=== PATIENT | female | born 1935 | race Caucasian/White ===

== ENCOUNTER 2016-06-19 16:55 | Inpatient (IN) | payer OTHER ==
[~2016-06-19] VITALS: Ht 162.6 cm; Wt 59.0 kg
[~2016-06-19 16:55] MED LIST: ACIDOPHILUS PO; ASPIRIN81 M1 PO; Augmentin PO; Bactrim,Septra DS 80 PO; COMPAZINE10 MG PO; LIPITOR20 MG PO; LORTAB 5-325 M1 EACH PO; MEDROL DOSEPAK4 MG PO; MOTRIN800 MG PO; OSCAL, OYSTER500 MG PO; Omega III EPA + DHA PO; PRILOSEC10 MG PO; Percocet 5/325,Endoc PO; ROPINIROLE HC0.25 MG PO; SKELAXIN800 MG PO; SODIUM CHLORIDE1 G1 PO; THERAGRAN1 TABLET PO; TRAZODONE HCL50 MG PO; TYLENOL REGULA325 MG PO; ZANTAC150 MG PO
[2016-06-19 19:49] LABS: EOSINOPHIL (%) 1.8 % (0-5); EOSINOPHIL COUNT 0.2 K/uL (0-0.3); HEMATOCRIT 31.3 % (36.0-46.0); IMMATURE GRANULOCYTE (%) 0.2 % (0.0-0.7); IMMATURE GRANULOCYTE COUNT 0.2 K/uL; MCH 31.3 PG (29.0-34.0); MCHC 35.5 G/DL (30.0-36.0); MCV 88.2 FL (83-99); MEAN PLAT.VOLUME 9.2 uM^3 (9.5-12.4); MONOCYTE (%) 0.5 % (3-12); NEUTROPHIL (%) 85.6 % (45-76); NEUTROPHIL COUNT 7.4 K/uL (1.8-6.4); PLATELET COUNT 188 K/uL (156-360); RBC DIS.WIDTH-CV 15.3 % (11.8-14.6); RBC DIS.WIDTH-SD 47.4 % (39-53); RED BLOOD COUNT 3.55 M/uL (3.80-5.20); WHITE BLOOD COUNT 8.7 K/uL (4.1-10.2)
[2016-06-19 20:07] LABS: CHLORIDE 89 mEq/L (99-109); POTASSIUM 4.9 mEq/L (3.7-5.4); SODIUM 124 mEq/L (136-147)
[2016-06-19 20:09] LABS: GLUCOSE 90 mg/dL (70-99)
[2016-06-19 20:11] LABS: ANION GAP 9 MEQ/L (2-14); TOTAL BILIRUBIN 0.7 mg/dL (0.0-1.0)
[2016-06-19 20:13] LABS: ALKALINE PHOSPHATASE 97 IU/L (3-129); GFR ESTIMATE (CALCULATED) > 59 mL/min/
[2016-06-19 20:14] LABS: UREA NITROGEN (BUN) 18 mg/dL (9-23)
[2016-06-19] MEDS ORDERED: DAILY VITE1 EAC1 PO (21:55)
[2016-06-19] MEDS ORDERED: OS-CAL 500+D T1 EAC1 PO (21:55)
[2016-06-19] MEDS ORDERED: VITAMIN B-12500 MC5 SL (21:56)
[2016-06-19] MEDS ORDERED: LO-DOSE ASPIRIN81 M1 PO (21:56)
[2016-06-19] MEDS ORDERED: ZANTAC150 MG PO (21:57)
[2016-06-19] MEDS ORDERED: VITAMIN B-250 MG PO (21:57)
[2016-06-19] MEDS ORDERED: LIPITOR20 MG PO (21:57)
[2016-06-19] MEDS ORDERED: CRANBERRY500 M2 PO (21:58)
[2016-06-19] MEDS ORDERED: NEURONTIN300 MG PO (21:59)
[2016-06-19] MEDS ORDERED: PROBIOTIC 5 BI1 EACH PO (21:59)
[2016-06-19] MEDS ORDERED: GABAPENTIN300 MG PO ×2 (22:00)
[2016-06-19] MEDS ORDERED: PROCHLORPERAZIN10 MG PO (22:01)
[2016-06-19] MEDS ORDERED: ZOFRAN8 MG PO (22:02)
[2016-06-19] MEDS ORDERED: SALINE NOSE SPR45 M1 BOTH NARES (22:03)
[2016-06-19 22:23] LABS: ADD MIUA? YES; BILIRUBIN NEGATIVE; BLOOD TRACE; COLOR YELLOW ((YELLOW)); GLUCOSE (STRIP) NEGATIVE; KETONES NEGATIVE; LEUKOCYTES MODERATE; NITRITE POSITIVE; PH, URINE 7.5 (5-8); PROTEIN (STRIP) 100; SPECIFIC GRAVITY 1.015 (1.000-1.030); UROBILINOGEN 0.2 MG/DL (0.2-1.0)
[2016-06-19 22:34] LABS: BACTERIA 3+; CASTS NONE SEEN /LPF; CRYSTALS NONE SEEN; EPITHELIAL CELLS RARE; MUCUS NONE SEEN; PATHOLOGICAL CAST NONE SEEN; SMALL ROUND CELL NONE SEEN; UCUL ADDED? YES; WHITE BLOOD CELLS TNTC /HPF (0-5); YEAST-LIKE CELL NONE SEEN
[2016-06-20 01:37] VITALS: BP 160/82
[2016-06-20 06:29] LABS: HEMATOCRIT 31.9 % (36.0-46.0); MCHC 34.8 G/DL (30.0-36.0); MCV 89.1 FL (83-99); MEAN PLAT.VOLUME 9.1 uM^3 (9.5-12.4); PLATELET COUNT 188 K/uL (156-360); RBC DIS.WIDTH-CV 15.6 % (11.8-14.6); RBC DIS.WIDTH-SD 49.9 % (39-53); RED BLOOD COUNT 3.58 M/uL (3.80-5.20); WHITE BLOOD COUNT 8.8 K/uL (4.1-10.2)
[2016-06-20 06:58] LABS: ALKALINE PHOSPHATASE 98 IU/L (3-129); ANION GAP 10 MEQ/L (2-14); CHLORIDE 94 MEQ/L (99-109); GFR ESTIMATE (CALCULATED) > 59 mL/min/; POTASSIUM 4.4 MEQ/L (3.7-5.4); SAMPLE HEMOLYSIS CHECK 0; SAMPLE ICTERIC CHECK 0; SAMPLE LIPEMIA CHECK 0; SODIUM 124 MEQ/L (136-147); TOTAL BILIRUBIN 0.4 MG/DL (0.0-1.0); UREA NITROGEN (BUN) 18 mg/dL (9-23)
[2016-06-20 07:00] LABS: GLUCOSE 137 mg/dL (70-99)
[2016-06-20 08:00] VITALS: BP 161/94
[2016-06-20 12:00] VITALS: BP 178/81
[2016-06-20 15:31] VITALS: BP 148/72
[2016-06-20 20:29] VITALS: BP 158/84
[2016-06-21 00:46] VITALS: BP 150/90
[2016-06-21 04:38] VITALS: BP 148/66
[2016-06-21 08:00] VITALS: BP 148/75
[2016-06-21 09:23] LABS: ANION GAP 8 MEQ/L (2-14); CHLORIDE 98 MEQ/L (99-109); POTASSIUM 4.5 MEQ/L (3.7-5.4); SAMPLE HEMOLYSIS CHECK 0; SAMPLE ICTERIC CHECK 0; SAMPLE LIPEMIA CHECK 0; SODIUM 130 MEQ/L (136-147)
[2016-06-21 09:29] LABS: GFR ESTIMATE (CALCULATED) 57 mL/min/; UREA NITROGEN (BUN) 21 mg/dL (9-23)
[2016-06-21 09:30] LABS: GLUCOSE 91 mg/dL (70-99)
[2016-06-21 11:54] VITALS: BP 175/76
[2016-06-21 15:19] LABS: ANION GAP 13 MEQ/L (2-14); CHLORIDE 95 MEQ/L (99-109); GFR ESTIMATE (CALCULATED) 51 mL/min/; GLUCOSE 96 mg/dL (70-99); POTASSIUM 4.2 MEQ/L (3.7-5.4); SAMPLE HEMOLYSIS CHECK 0; SAMPLE ICTERIC CHECK 0; SAMPLE LIPEMIA CHECK 0; SODIUM 133 MEQ/L (136-147); UREA NITROGEN (BUN) 22 mg/dL (9-23)
[2016-06-21 15:44] VITALS: BP 139/88
[2016-06-21 19:27] VITALS: BP 183/84
[2016-06-21 21:29] LABS: ANION GAP 7 MEQ/L (2-14); CHLORIDE 99 MEQ/L (99-109); POTASSIUM 4.6 MEQ/L (3.7-5.4); SAMPLE HEMOLYSIS CHECK 0; SAMPLE ICTERIC CHECK 0; SAMPLE LIPEMIA CHECK 0; SODIUM 130 MEQ/L (136-147)
[2016-06-21 21:35] LABS: GFR ESTIMATE (CALCULATED) 51 mL/min/; GLUCOSE 101 mg/dL (70-99); UREA NITROGEN (BUN) 23 mg/dL (9-23)
[2016-06-22 00:32] VITALS: BP 172/77
[2016-06-22 02:21] LABS: POTASSIUM 4.5 mEq/L (3.7-5.4); SODIUM 132 mEq/L (136-147)
[2016-06-22 02:23] LABS: GLUCOSE 85 mg/dL (70-99)
[2016-06-22 02:24] LABS: ANION GAP 8 MEQ/L (2-14)
[2016-06-22 02:27] LABS: GFR ESTIMATE (CALCULATED) > 59 mL/min/; UREA NITROGEN (BUN) 23 mg/dL (9-23)
[2016-06-22 02:51] LABS: CHLORIDE 102 mEq/L (99-109)
[2016-06-22 03:49] VITALS: BP 169/78
[2016-06-22 08:00] VITALS: BP 186/80
[2016-06-22 09:30] LABS: ANION GAP 6 MEQ/L (2-14); CHLORIDE 98 MEQ/L (99-109); POTASSIUM 4.2 MEQ/L (3.7-5.4); SAMPLE HEMOLYSIS CHECK 0; SAMPLE ICTERIC CHECK 0; SAMPLE LIPEMIA CHECK 0; SODIUM 130 MEQ/L (136-147)
[2016-06-22 09:35] LABS: GFR ESTIMATE (CALCULATED) > 59 mL/min/; GLUCOSE 80 mg/dL (70-99); UREA NITROGEN (BUN) 20 mg/dL (9-23)
[2016-06-22] MEDS ORDERED: KEFLEX250 MG PO (11:24)
[2016-06-22] MEDS ORDERED: NORVASC10 MG PO (11:24)
== END 2016-06-22 13:25 | disposition home or self-care (01) | DRG 71 ==
LOC: EME 16:55 → EDOF 23:47 → 5SOUTH 06-20 01:24
PROVIDERS: Internal Medicine; Physician Assistant
DX: G93.40 Encephalopathy, unspecified (principal); E87.1 Hypo-osmolality and hyponatremia; C56.9 Malignant neoplasm of unspecified ovary; N39.0 Urinary tract infection, site not specified; R51 Headache; I10 Essential (primary) hypertension; E78.2 Mixed hyperlipidemia; G62.9 Polyneuropathy, unspecified; B96.1 Klebsiella pneumoniae [K. pneumoniae] as the cause of diseases classified elsewhere; D63.8 Anemia in other chronic diseases classified elsewhere; R03.0 Elevated blood-pressure reading, without diagnosis of hypertension; T45.1X5A Adverse effect of antineoplastic and immunosuppressive drugs, initial encounter
CPT/HCPCS: 70450; 70551; 80048; 80048 91; 80053; 81003; 83930; 83935; 84300; 85025; 85027; 87040; 87077; 87086 GA; 87186; 94799; 99281; 99285; J0696; J0780; J1100; J1200; J1644; J1885; J2270; J2405; J7030; J7050

== ENCOUNTER 2016-06-30 19:54 | Emergency (ER) | payer OTHER ==
[~2016-06-30] VITALS: Ht 162.6 cm; Wt 57.6 kg
[~2016-06-30 19:54] MED LIST changes: +CRANBERRY500 M2 PO; +DAILY VITE1 EAC1 PO; +GABAPENTIN300 MG PO; +KEFLEX250 MG PO; +LO-DOSE ASPIRIN81 M1 PO; +NEURONTIN300 MG PO; +NORVASC10 MG PO; +OS-CAL 500+D T1 EAC1 PO; +PROBIOTIC 5 BI1 EACH PO; +PROCHLORPERAZIN10 MG PO; +SALINE NOSE SPR45 M1 BOTH NARES; +VITAMIN B-12500 MC5 SL; +VITAMIN B-250 MG PO; +ZOFRAN8 MG PO
[2016-06-30 21:50] LABS: CREATININE 1.1 mg/dL (0.6-1.3); POTASSIUM 4.4 mEq/L (3.7-5.4)
[2016-06-30 21:51] LABS: HEMATOCRIT 26.9 % (36.0-46.0); MCH 31.7 PG (29.0-34.0); MCHC 34.2 G/DL (30.0-36.0); MCV 92.8 FL (83-99); RBC DIS.WIDTH-CV 17.9 % (11.8-14.6); RBC DIS.WIDTH-SD 56.2 % (39-53); WHITE BLOOD COUNT 8.8 K/uL (4.1-10.2)
[2016-06-30 21:52] LABS: MEAN PLAT.VOLUME 9.3 uM^3 (9.5-12.4); PLATELET COUNT 656 K/uL (156-360)
[2016-06-30 22:01] LABS: CHLORIDE 104 mEq/L (99-109); SODIUM 136 mEq/L (136-147)
[2016-06-30 22:04] LABS: ANION GAP 12 MEQ/L (2-14)
[2016-06-30 22:05] LABS: TOTAL BILIRUBIN 0.1 mg/dL (0.0-1.0)
[2016-06-30 22:07] LABS: ALKALINE PHOSPHATASE 94 IU/L (3-129); GFR ESTIMATE (CALCULATED) 51 mL/min/
[2016-06-30 22:08] LABS: UREA NITROGEN (BUN) 32 mg/dL (9-23)
[2016-06-30 22:10] LABS: URIC ACID 3.6 mg/dL (3.1-9.2)
[2016-06-30 22:11] LABS: GLUCOSE 110 mg/dL (70-99); POTASSIUM 4.6 mEq/L (3.7-5.4)
[2016-06-30 23:05] VITALS: BP 120/59
== END 2016-06-30 23:19 | disposition home or self-care (01) ==
LOC: EME 19:54
PROVIDERS: Emergency Medicine
DX: R68.89 Other general symptoms and signs (principal); E78.5 Hyperlipidemia, unspecified; K21.9 Gastro-esophageal reflux disease without esophagitis; Z85.43 Personal history of malignant neoplasm of ovary
CPT/HCPCS: 80047; 80048; 80053; 84550; 85027; 93005; 99281; 99284